=== PATIENT | male | born 1995 | race Caucasian/White ===

== ENCOUNTER 2018-06-27 11:39 | Inpatient (IN) | payer MEDICAID ==
[~2018-06-27] VITALS: Ht 177.8 cm; Wt 79.4 kg
[2018-06-27 11:46] VITALS: BP 137/53
--- NOTE | 2018-06-27 11:53 | NUR ---
PT TO ER BED 1
--- NOTE | 2018-06-27 12:04 | NUR ---
BIB SELF WITH MOTHER C/O SHARP/ACHY EPIGASTRIC PAIN AT 10/10 THAT RADIATES TO BILATERAL SIDES X3 DAYS. PT WAS IN [place] FROM 06/19 TO 06/26. PT WAS GIVEN PAIN MEDICATION SHOT, KETORALAC AND AN ORAL PRESCRIPTION OF KETORALAC AT [place] [facility]. PT REPORTS N/V AND FEVER, CURRENTLY A FEBRILE. DENIES DIARRHEA. HR EVEN AND REGULAR; PATIENT POSITIONED FOR COMFORT; HOB ELEVATED; BEDRAILS UP X2; BED DOWN. ER MADE AWARE OF PT STATUS. Addendum: 06/27/18 at 1629 by [facility]: RIOPAN,LONZOPRASOL,KETEROLACO,RANITINA X YESTERDAY.
--- NOTE | 2018-06-27 12:04 | NUR ---
Note undone in EDM - 06/27/18 at 1226 by MED BIB SELF WITH MOTHER C/O SHARP/ACHY EPIGASTRIC PAIN AT 01/27 THAT RADIATES TO BILATERAL SIDES X3 DAYS. PT WAS IN [place] FROM 06/19 TO 06/26. PT REPORTS N/V AND FEVER, CURRENTLY A FEBRILE. DENIES DIARRHEA. HR EVEN AND REGULAR; PATIENT POSITIONED FOR COMFORT; HOB ELEVATED; BEDRAILS UP X2; BED DOWN. ER MADE AWARE OF PT STATUS.
[2018-06-27] MEDS ORDERED: NACL 0.9% 1,000 ML IV ONE (13:14)
[2018-06-27] MEDS ORDERED: FAMOTIDINE 20 MG/2 ML VIAL IVP ONE (13:15)
[2018-06-27] MEDS ORDERED: METOCLOPRAMIDE 10 MG/2 ML INJ VIAL IVP ONE (13:15)
[2018-06-27] MEDS ORDERED: LACTATED RINGERS 1,000 ML IV ONE (13:15)
[2018-06-27] MEDS ORDERED: PROMETHAZINE 25 MG/ML VIAL IM ONE (13:15)
[2018-06-27] MEDS ORDERED: ONDANSETRON 4 MG/2 ML VIAL IVP ONE (13:15)
[2018-06-27] MEDS ORDERED: MORPHINE SULFATE 4 MG/ML SYR IVP ONE (13:15)
[2018-06-27 14:42] LABS: HEMATOCRIT 50.5 % (36-52); HEMOGLOBIN 16.6 g/dL (12.0-18.0); MEAN CORPUSCULAR HEMOGLOBIN 30 pg (27-31); MEAN CORPUSCULAR HGB CONC 33 g/dL (33-37); MEAN CORPUSCULAR VOLUME 90.8 fL (80-94); PLATELET COUNT (AUTO) 115 K/uL (140-450); RED BLOOD CELL COUNT(AUTO) 5.56 MIL/uL (4.20-6.10); RED CELL DISTRIBUTION WIDTH 12.5 % (11.6-13.7); WHITE BLOOD COUNT (AUTO) 24.1 K/uL (4.8-10.8)
[2018-06-27 15:05] LABS: ANION GAP 16.7 (8-16); CARBON DIOXIDE 23.7 mmol/L (21-32); CHLORIDE 99 mmol/L (98-107); CREATININE 1.6 mg/dL (0.7-1.3); GFR ARICAN-AMERICAN 68 mL/min (>90); GLUCOSE 131 mg/dL (74-106); POTASSIUM 4.4 mmol/L (3.5-5.1); SODIUM SERUM 135 mmol/L (136-145); UREA NITROGEN, BLOOD 23 mg/dL (7-18)
[2018-06-27 15:10] LABS: ALBUMIN 3.5 g/dL (3.4-5.0); AMYLASE 604 U/L (25-115); ASPARTATE AMINOTRANSFERASE 74 U/L (15-37); LIPASE 4032 U/L (73-393); TOTAL BILIRUBIN 2.2 mg/dL (0.0-1.0)
[2018-06-27 15:38] LABS: BILIRUBIN,URINE 1+ (NEGATIVE); BLOOD, URINE 3+ (NEGATIVE); COLOR,URINE YELLOW (YELLOW); LEUKOCYTE ESTERASE ,URINE NEGATIVE (NEGATIVE); NITRITE, URINE NEGATIVE (NEGATIVE); UGLUCOSE NEGATIVE (NEGATIVE)
[2018-06-27] MEDS ORDERED: LEVOFLOXACIN 750 MG/D5W PREMIX 150 ML IV ONE (15:40)
[2018-06-27] MEDS ORDERED: GLYCOPYRROLATE 0.2 MG/ML VIAL IV ONE (15:40)
[2018-06-27 15:43] LABS: APPEARANCE,URINE HAZY (CLEAR)
[2018-06-27 15:44] LABS: BARBITURATE, URINE NEG. ng/ml (NEG <=200); BENZODIAZEPINE, URINE NEG. ng/mL (NEG <=200); CANNABINOID, URINE NEG. ng/mL (NEG <=50); COCAINE, URINE NEG. ng/mL (NEG <=300); OPIATE, URINE POS. ng/mL (NEG <=2000); PHENCYCLIDINE SCREEN,URINE NEG. ng/mL (NEG <=25)
[2018-06-27] MEDS ORDERED: NACL 0.9% 2,000 ML IV SCH (15:50)
[2018-06-27 15:55] LABS: RBC,URINE 11-20 (MOD) /HPF (0-5); WBC,URINE 0-5 /HPF (0-5)
[2018-06-27 16:07] LABS: LYMPHOCYTES % (MANUAL) 3 % (20-46); MONOCYTES % (MANUAL) 10 % (5-12)
[2018-06-27] MEDS ORDERED: ONDANSETRON 4 MG/2 ML VIAL IM/IVP PRN (16:15)
[2018-06-27] MEDS ORDERED: DOCUSATE SODIUM 100 MG GELCAP PO PRN (16:15)
[2018-06-27 16:40] LABS: PROTHROMBIN TIME 10.5 secs (10.8-13.4)
[2018-06-27 16:59] LABS: CHOL/HDL RATIO 2.2 (1-4.5); MAGNESIUM 2.3 mg/dL (1.8-2.4); PHOSPHORUS 3.3 mg/dL (2.5-4.9); THYROID STIMULATING HORMONE 1.13 uIU/mL (0.34-3.74)
--- NOTE | 2018-06-27 17:06 | NUR ---
Patient will be admitted to care of Dr. Villaseñor. Admited to TELE. Will go to room 125 B. Belongings list completed. Report to BIANKA Campos.
[2018-06-27 17:15] VITALS: BP 140/100
--- NOTE | 2018-06-27 17:15 | NUR ---
PT TRANSFERRED TO [facility] UNIT FROM ER VIA GURNEY ESCORTED BY CROTCH BREAKER. REPORT GIVEN AT BEDSIDE FOR CONTINUITY OF CARE, PT IN STABLE CONDITION. HE IS AOX4 GEORGIAN AND JAPANESE SPEAKING. PT SKIN IN TACT. LUNGS SOUNDS CLEAR BUT DIMINISHED ON LEFT SIDE. PT IS BREATHING EVEN AND UNLABORED ON ROM AIR. BOWEL SOUNDS NOTED ALL 4 QUADS, HOWEVER PT SAID THAT HE HAS HAD A LACK OF APPETITE FOR 3 DAYS AND LAST BM WAS 3 DAYS AGO ON THE 7TH. PT SAID THAT HE WAS IN [place] LAST WEEK, AND DRANK HEAVILY. PT SAID HIS SYMPTOMS PAIN , NAUSEA AND VOMITING STARTED 3 DAYS AGO. PT STILL COMPLAINING OF 10/10 PAIN. WILL SPEAK TO RESIDENT MD MANNING TO OBTAIN ORDERS FOR PAIN.
--- NOTE | 2018-06-27 17:30 | NUR ---
PT IN LOW BED SIDE RAILS UP X2 V/S FOLLOWS T 97.6 P 138 R 20 B/P 140/100 02 99% ON ROOM AIR. PT STILL COMPLAINING OF PAIN AND FEELING ANXIOUS.
--- NOTE | 2018-06-27 17:45 | NUR ---
NEW ORDERS NOTED.FOR CT OF ABD/PELVIS WITH CONTRAST. FRUIT DISTRIBUTOR CALLED AND RELAYED MESSAGE TO HAVE PT DRINK WATER BEFORE AND AFTER PROCEDURE BECAUSE CONTRAST DYE IS TAXING FOR THE KIDNEYS.
[2018-06-27] MEDS: NACL 0.9% 1,000 ML IV SCH ×2 (17:50→22:50)
[2018-06-27] MEDS ORDERED: PANTOPRAZOLE 40 MG INJ VIAL IVP SCH (18:00)
[2018-06-27] MEDS: MORPHINE SULFATE 2 MG/ML SYR IVP PRN ×2 (18:05→22:31)
[2018-06-27] MEDS: LORazepam 2 MG/ML VIAL IM/IVP PRN (18:34)
--- NOTE | 2018-06-27 18:40 | NUR ---
PT GIVEN IVP MORPHINE 2MG AND .5MG OF ATIVAN FOR PAIN AN10/10 AND C/O OF ANXIETY. CONSENT SIGNED FOR CT WITH IV CONTRAST.
[2018-06-27] MEDS ORDERED: cefTRIAXone 1,000 MG VIAL ONE (20:11)
--- NOTE | 2018-06-27 20:14 | NUR ---
US OF CHEST, LEFT SIDE DONE AT BEDSIDE.
--- NOTE | 2018-06-27 20:30 | NUR ---
RETAKE OF PT V/S T 98.4 P 140 R 20 B/P 139/87 02 96%. PT HEART RATE ELEVATED, HOWEVER HE HAD JUST AMBULATED TO TOILET AND BACK.
--- NOTE | 2018-06-27 20:37 | NUR ---
PT BROUGHT DOWN TO RADIOLOGY VIA W/C FOR CT WITH CONTRAST.
[2018-06-27] MEDS: metroNIDAZOLE 500 MG/NS PREMIX 100 ML IV SCH (21:00)
--- NOTE | 2018-06-27 22:30 | NUR ---
PT LYING QUIETLY IN BED BUT HAS C/O OF 8/10 WHEN HE MOVES. PT GIVEN PRN IVP MORPHINE. DR. AL AWARE OF ELEVATED HR. WILL MONITOR FOR PAIN RELIEF AND TACHYCARDIA.
--- NOTE | 2018-06-27 23:55 | NUR ---
PT AMBULATED TO TOILET AND BACK. V/S FOLLOWS T 98.4 P 138 R 20 B/P 134/85 02 96%. PT SAID THAT HE IS IN PAIN WHEN HE IS MOVING AROUND. WILL RECHECK HR AFTER PT HAS SETTLED IN TO BED.
--- NOTE | 2018-06-28 00:20 | NUR ---
HEART RATE FLUCTUATING [id number]. IN FORMED DR. AL. HE SAID HE WILL SEE PT AND MAY CHANGE THE FLUID RATE FOR PT. WILL MONITOR FOR ANY NEW ORDERS.
--- NOTE | 2018-06-28 00:32 | NUR ---
SPOKE WITH DR. AL WHO EVALUATED PT. NEW ORDER FOR FLUID INCREASE TO 250MLS/HR OF N/S.
[2018-06-28] MEDS: NACL 0.9% 1,000 ML IV SCH ×2 (03:09→07:38)
[2018-06-28] MEDS: MORPHINE SULFATE 2 MG/ML SYR IVP PRN ×4 (03:30→20:37)
--- NOTE | 2018-06-28 03:35 | NUR ---
PT C/O OF OF SEVERE PAIN IN ABDOMEN 12/28 GIVEN IVP/PRN MORPHINE WILL MONITOR FOR PAIN RELIEF. V/S FOLLOWS T 98.2 P 127 R 20 B/P 138/93 02 96% ON ROOM AIR.
[2018-06-28 04:00] VITALS: BP 138/93
[2018-06-28] MEDS: metroNIDAZOLE 500 MG/NS PREMIX 100 ML IV SCH ×3 (05:00→20:39)
--- NOTE | 2018-06-28 05:02 | NUR ---
EKG WAS DONE AT BEDSIDE. MAC HUNG ORDERED.
[2018-06-28] MEDS: PANTOPRAZOLE 40 MG INJ VIAL IVP SCH (06:29)
--- NOTE | 2018-06-28 07:25 | NUR ---
GAVE REPORT TO BASHIR RN DAYSHIFT NURSE AT BEDSIDE FOR CONTINUITY OF CARE, PT IN STABLE CONDITION.
--- NOTE | 2018-06-28 07:30 | NUR ---
BEDSIDE REPORT RECEIVED FROM NIGHT NURSE. PT ASLEEP, EASILY AROUSABLE TO VERBAL STIMULI, NO S/S OF ACUTE DISTRESS NOTED AT THIS TIME, CALL LIGHT AND PERSONAL ITEMS WITHIN REACH, SAFETY MEASURES IN PLACE, WILL CONTINUE TO MONITOR.
[2018-06-28 08:00] VITALS: BP 129/89
[2018-06-28 08:13] LABS: BASOPHILS % (AUTO) 0.1 % (0.0-2.0); HEMATOCRIT 41.4 % (36-52); HEMOGLOBIN 13.5 g/dL (12.0-18.0); LYMPHOCYTES # (AUTO) 0.6 K/uL (2.0-11.5); LYMPHOCYTES % (AUTO) 4.3 % (20.5-51.1); MEAN CORPUSCULAR HEMOGLOBIN 30 pg (27-31); MEAN CORPUSCULAR HGB CONC 33 g/dL (33-37); MEAN CORPUSCULAR VOLUME 92.4 fL (80-94); MONOCYTES # (AUTO) 0.9 K/uL (0.8-1.0); MONOCYTES % (AUTO) 6.7 % (1.7-9.3); NEUTROPHILS # (AUTO) 11.9 K/uL (1.8-7.7); NEUTROPHILS % (AUTO) 88.9 % (42.2-75.2); PLATELET COUNT (AUTO) 94 K/uL (140-450); RED BLOOD CELL COUNT(AUTO) 4.49 MIL/uL (4.20-6.10); RED CELL DISTRIBUTION WIDTH 12.5 % (11.6-13.7); WHITE BLOOD COUNT (AUTO) 13.3 K/uL (4.8-10.8)
[2018-06-28] MEDS: LACTOBACILLUS RHAMNOSUS GG 1 EACH CAP PO SCH (08:13)
[2018-06-28 08:14] LABS: T4 (THYROXINE) 5.8 ug/dL (4.5-12.0)
[2018-06-28 08:22] LABS: ANION GAP 11.7 (8-16); CARBON DIOXIDE 25.2 mmol/L (21-32); CREATININE 1.4 mg/dL (0.7-1.3); MAGNESIUM 2.5 mg/dL (1.8-2.4); PHOSPHORUS 3.4 mg/dL (2.5-4.9); POTASSIUM 3.9 mmol/L (3.5-5.1)
[2018-06-28 08:25] LABS: AMYLASE 311 U/L (25-115); LIPASE 1987 U/L (73-393)
--- NOTE | 2018-06-28 08:42 | NUR ---
PATIENT HAS BEEN SCREENED AND CATEGORIZED HIGH NUTRITION RISK. PATIENT WILL BE SEEN WITHIN 1-2 DAYS OF ADMISSION. 06/28/18-06/29/[address]
[2018-06-28] MEDS ORDERED: PANTOPRAZOLE 40 MG TABEC PO SCH (09:00)
--- NOTE | 2018-06-28 10:30 | NUR ---
PT ASLEEP AT THIS TIME, VISITORS AT BEDSIDE. NO S/S OF ACUTE DISTRESS NOTED AT THIS TIME, CALL LIGHT AND PERSONAL ITEMS WITHIN REACH, SAFETY MEASURES IN PLACE. WILL CONTINUE TO MONITOR.
[2018-06-28 12:25] VITALS: BP 132/84
--- NOTE | 2018-06-28 13:30 | NUR ---
PT AWAKE A/O ABLE TO COMMUNICATE NEEDS, VISITORS AT BEDSIDE. TOLERATING ICE CHIPS WELL, DENIES NV, PAIN CURRENTLY MANAGED W MEDICATION. NO S/S OF ACUTE DISTRESS NOTED AT THIS TIME, CALL LIGHT AND PERSONAL ITEMS WITHIN REACH, SAFETY MEASURES IN PLACE. WILL CONTINUE TO MONITOR.
[2018-06-28] MEDS: LACTATED RINGERS 1,000 ML IV SCH (14:30)
[2018-06-28] MEDS ORDERED: HYDROmorphone 2 MG TAB PO PRN (14:30)
--- NOTE | 2018-06-28 15:30 | NUR ---
06/28/18 RD INITIAL ASSESSMENT COMPLETED PLEASE REFER TO NUTRITION ASSESSMENT UNDER CARE ACTIVITY FOR ESTIMATED NUTRITIONAL NEEDS. 1. CONTINUE CLEAR DIET TOLERATED 2. RECOMMEND ENSURE CLEAR BID 3. RECOMMEND GRADUALLY ADVANCING DIET TO LOW FAT 4. RD PROVIDED NUTRITION EDUCATION ON PANCREATITIS 5. RD TO FOLLOW-UP 3-5 DAYS, MODERATE RISK TAWANA PINA RD
[2018-06-28 16:00] VITALS: BP 131/85
--- NOTE | 2018-06-28 16:30 | NUR ---
PT AWAKE A/O ABLE TO COMMUNICATE NEEDS, VISITORS AT BEDSIDE. TOLERATING CLEAR LIQUID DIET WELL, DENIES NV, PAIN CURRENTLY MANAGED W MEDICATION. NO S/S OF ACUTE DISTRESS NOTED AT THIS TIME, CALL LIGHT AND PERSONAL ITEMS WITHIN REACH, SAFETY MEASURES IN PLACE. WILL CONTINUE TO MONITOR
--- NOTE | 2018-06-28 19:28 | NUR ---
PT SLEEP, EASILY AROUSABLE TO VERBAL STIMULI TO A/O AND ABLE TO COMMUNICATE NEEDS, VISITORS AT BEDSIDE. PT TOLERATING CLEAR LIQUID DIET WELL, STARTED ON GI SOFT DIET ORDERED. DENIES N/V. PAIN CURRENTLY MANAGED W MEDICATION. NO S/S OF ACUTE DISTRESS NOTED AT THIS TIME, CALL LIGHT AND PERSONAL ITEMS WITHIN REACH, SAFETY MEASURES IN PLACE. REPORT ENDORSED TO ONCOMING NURSE BYRON.
--- NOTE | 2018-06-28 19:30 | NUR ---
RECEIVED PT FROM [facility] NURSE PT IS AAOX4 RESTING ON BED ON TELEMETRY ST IV ON LEFT AC INFUSING WELL DENIES ANY PAIN AT THIS TIME, RELATIVES AT BED SIDE INITIAL ASSESSMENT DONE.
[2018-06-28 20:00] VITALS: BP 132/89
--- NOTE | 2018-06-28 21:15 | NUR ---
AFTER PAIN MEDIC GIVEN PT IS SLEEPING BUT PT ON TELEMETRY DR SERVANDO ESTRADA IS AWARE
[2018-06-29] VITALS (10 sets, daily range): BP systolic 135–155; BP diastolic 73–99
--- NOTE | 2018-06-29 | NUR ---
PT HAS BEEN MOITORING CLOSE ON TELEMETRY ST DR AL AWARE VOIDING WELL IV ON LEFT AC INFUSING WELL
[2018-06-29] MEDS: MORPHINE SULFATE 2 MG/ML SYR IVP PRN ×2 (01:27→04:23)
[2018-06-29] MEDS: LACTATED RINGERS 1,000 ML IV SCH ×4 (02:20→17:41)
--- NOTE | 2018-06-29 02:29 | NUR ---
AFTER PAIN MEDIC GIVENKPT IS SLEEPING WELL , ST ON TELEMETRY
--- NOTE | 2018-06-29 04:00 | NUR ---
SPONGE BATH GIVEN LINEN CHANGED VOIDING WELL IV ON LEFT AC INFUSING WELL ON TELEMETRY ST
[2018-06-29] MEDS: metroNIDAZOLE 500 MG/NS PREMIX 100 ML IV SCH ×2 (04:24→20:10)
[2018-06-29] MEDS: PANTOPRAZOLE 40 MG INJ VIAL IVP SCH (06:01)
[2018-06-29 06:30] LABS: ANION GAP 12.8 (8-16); CARBON DIOXIDE 23.7 mmol/L (21-32); CREATININE 1.1 mg/dL (0.7-1.3); POTASSIUM 3.5 mmol/L (3.5-5.1)
[2018-06-29 06:43] LABS: BASOPHILS % (AUTO) 0.1 % (0.0-2.0); EOSINOPHILS % (AUTO) 0.1 % (0.0-4.0); HEMATOCRIT 34.6 % (36-52); HEMOGLOBIN 11.4 g/dL (12.0-18.0); LYMPHOCYTES # (AUTO) 0.7 K/uL (2.0-11.5); LYMPHOCYTES % (AUTO) 5.9 % (20.5-51.1); MEAN CORPUSCULAR HEMOGLOBIN 30 pg (27-31); MEAN CORPUSCULAR HGB CONC 33 g/dL (33-37); MEAN CORPUSCULAR VOLUME 91.4 fL (80-94); MONOCYTES # (AUTO) 1.2 K/uL (0.8-1.0); MONOCYTES % (AUTO) 9.9 % (1.7-9.3); PLATELET COUNT (AUTO) 108 K/uL (140-450); RED BLOOD CELL COUNT(AUTO) 3.78 MIL/uL (4.20-6.10); RED CELL DISTRIBUTION WIDTH 12.6 % (11.6-13.7); WHITE BLOOD COUNT (AUTO) 11.9 K/uL (4.8-10.8)
[2018-06-29 06:46] LABS: MAGNESIUM 2.2 mg/dL (1.8-2.4); PHOSPHORUS 3.1 mg/dL (2.5-4.9)
[2018-06-29] MEDS ORDERED: MORPHINE SULFATE 4 MG/ML SYR IVP ONE (06:55)
[2018-06-29] MEDS ORDERED: HYDROmorphone 1 MG/ML AMP IVP PRN (06:55)
--- NOTE | 2018-06-29 07:04 | NUR ---
PT RESTING ON BED ON TELMETRY ST PT WILL BE ENDORSED ;TO DAY SHIFT NURSE FOR CONTINUITY OF CARE
--- NOTE | 2018-06-29 07:20 | NUR ---
REPORT RECIVED FROM TOP STEEP TENDER, PT AWAKE ALERT, C/O SEVER ABD PAIN, RESP EVEN UNLABORED ON RA, SKIN WARM DRY COLOR WNL, POC REVIEWED, PT REQUESTS MD ABBY AWARE PER REPORT, ALL SAFETY MEASURES IN PLACE, WILL MEDICATE SOON POSSIBLE.
[2018-06-29] MEDS ORDERED: LORazepam 2 MG/ML VIAL IM/IVP SCH ×2 (07:34→12:00)
[2018-06-29] MEDS: LACTOBACILLUS RHAMNOSUS GG 1 EACH CAP PO SCH (08:51)
--- NOTE | 2018-06-29 09:00 | NUR ---
PT SLEEPING QUIETLY IN NAD, FAMILY AT BEDSIDE, WILL CONTINUE TO MONITOR.
--- NOTE | 2018-06-29 10:05 | NUR ---
PT RESTING QUIETLY, STATES PAIN IS MUCH BETTER, PT CONTINUES TO BE TACHYCARDIC IN 130'S, DR MANNING NOTIFIED OF CONTINUING TACHYCARDIA, AND ABDOMINAL DISTENTION.
[2018-06-29] MEDS: HYDROcodone/APAP 7.5/325 MG 1 TAB PO PRN (11:20)
[2018-06-29] MEDS ORDERED: LORazepam 2 MG/ML VIAL IM/IVP PRN (11:30)
--- NOTE | 2018-06-29 12:00 | NUR ---
PT SLEEPING QUIETLY STATES PAIN IS SUBSIDED BUT HR 130-140 ON TELE, DR MANNING MADE AWARE.
[2018-06-29] MEDS: SENNA 8.6 MG TAB PO SCH ×2 (12:04→17:34)
[2018-06-29] MEDS: traMADol 50 MG TAB PO SCH ×3 (12:04→18:03)
[2018-06-29] MEDS: AMYLASE/LIPASE/PROTEASE 1 CAPDR PO SCH ×2 (12:05→17:34)
[2018-06-29] MEDS ORDERED: chlordiazePOXIDE 25 MG CAP PO SCH (13:00)
--- NOTE | 2018-06-29 13:30 | NUR ---
PT STILL WITH INCREASED HR 140-150 ON MONITOR, BP 155/98, RESP SLIGHTLY TACHYPNEC 24, O2 SAT 88 ON ROOM AIR, PLACED ON 3L NC O2, TEMP 99.6 ORRALY, PT SLEEPY, AROUSES EASILY SPEAKS CLEARLY BUT FALLS BACK TO SLEEP IMMEDIATELY, STATES PAIN IS CONTROLLED AT THIS TIME, DR DAMON MADE AWARE OF CURRENT VITALS.
[2018-06-29 13:31] LABS: ALBUMIN 2.4 g/dL (3.4-5.0); TOTAL BILIRUBIN 1.5 mg/dL (0.0-1.0)
--- NOTE | 2018-06-29 13:55 | NUR ---
DR MANNING AT BEDSIDE FOR EVAL .
--- NOTE | 2018-06-29 14:10 | NUR ---
ANOTHER DOSE OF ATIVAN GIVEN FOR C/O ANXIOUSNESS AND INCREASED HR, OK TO GIVE A DOSE NOW PER DR MANNING.
[2018-06-29] MEDS: LORazepam 2 MG/ML VIAL IM/IVP PRN (14:13)
--- NOTE | 2018-06-29 14:25 | NUR ---
PT TAKEN TO ICU ON CAGE MAKER WITH RN.
--- NOTE | 2018-06-29 14:35 | NUR ---
RECEIVED PATIENT FROM [facility] RN, MARY KAY, FOR CONTINUITY OF CARE. PATIENT IS LETHARGIC, AAOX4. SKIN IS WARM AND DRY AND INTACT. PERIPHERAL IV SITE TO LEFT AC, ASYMPTOMATIC AND PATENT. ON NASAL CANNULA AT 2 LPM, BREATHING IS EVEN AND UNLABORED. ST ON MONITOR, DENIES ANY PAIN AT THIS TIME. NO SIGNS OF DISTRESS AT THIS TIME. CALL LIGHT WITHIN REACH. WILL CONTINUE TO MONITOR Addendum: 06/29/18 at 1500 by Dylan Mendoza RN ADMITTED TO ICU
--- NOTE | 2018-06-29 15:12 | NUR ---
PATIENT IS FEBRILE, TEMP IS 101, ADMINISTERED TYLENOL PRN. PATIENT TOLERATED WELL
--- NOTE | 2018-06-29 15:15 | NUR ---
DR. LEMUS AND DR. MANNING AT BEDSIDE, WILL CONTINUE TO MONITOR.
[2018-06-29] MEDS ORDERED: cloNIDine 0.1 MG TAB PO SCH (15:25)
--- NOTE | 2018-06-29 15:38 | NUR ---
PT UNABLE TO PERFORM IS AT THIS TIME
[2018-06-29] MEDS: ACETAMINOPHEN 325 MG TAB PO PRN (17:41)
--- NOTE | 2018-06-29 17:54 | NUR ---
PATIENT FAMILY AT BEDSIDE, NO SIGNS OF DISTRESS NOTED. WILL CONTINUE TO MONITOR
--- NOTE | 2018-06-29 19:25 | NUR ---
RECEIVED REPORT FROM DAY SHIFT NO ACUTE DISTRESS NOTED.
--- NOTE | 2018-06-29 19:45 | NUR ---
PT AAOX3, FOLLOWING COMMANDS, MOVING EXTREMITIES IN BED. ABLE TO COMMUNICATE NEEDS AND WANTS. PT VERBALIZED UNDERSTANDING ABOUT NPO STATUS @ THIS TIME. LUNGS CLEAR EVEN AND UNLABORED. S1 S2 HEARD, NO EDEMA NOTED. ABD SOFT NON DISTENDED. ACTIVE BOWEL SOUNDS X4. PT VOIDING IN URINAL, DARK TEA COLORED. SKIN WARM DRY INTACT. PERIPHERAL IVS TO L FOREARM NOTED. WILL CONTINUE TO OBSERVE.
[2018-06-29] MEDS: HYDROmorphone 1 MG/ML AMP IVP PRN (19:59)
[2018-06-29] MEDS: cloNIDine 0.1 MG TAB PO SCH (20:07)
--- NOTE | 2018-06-29 23:00 | NUR ---
PT HAS EYES CLOSED; AROUSABLE; FAMILY @ BEDSIDE. HR 120S BP 135/68 SPO2 99%. PT DENIES PAIN @ THIS TIME. WILL CONTINUE TO OBSERVE
[2018-06-30] VITALS (12 sets, daily range): BP systolic 120–156; BP diastolic 74–97
[2018-06-30] MEDS: LORazepam 2 MG/ML VIAL IM/IVP PRN ×2 (01:42→10:53)
--- NOTE | 2018-06-30 02:25 | NUR ---
PT STATES HE FEELS WARM, CHECKED TEMPERATURE, 101.3, TYLENOL GIVEN WILL CONTINUE TO OBSERVE
[2018-06-30] MEDS: LACTATED RINGERS 1,000 ML IV SCH ×2 (02:45→11:22)
[2018-06-30] MEDS: ACETAMINOPHEN 325 MG TAB PO PRN (02:45)
[2018-06-30] MEDS: HYDROmorphone 1 MG/ML AMP IVP PRN ×3 (03:25→20:33)
--- NOTE | 2018-06-30 04:00 | NUR ---
PT TEMP NOW DOWN TO 97.4, HR 120S BP 130/82. WILL CONTINUE TO OBSERVE
[2018-06-30] MEDS: metroNIDAZOLE 500 MG/NS PREMIX 100 ML IV SCH (05:18)
[2018-06-30] MEDS: cloNIDine 0.1 MG TAB PO SCH ×3 (05:18→20:37)
[2018-06-30] MEDS: PANTOPRAZOLE 40 MG INJ VIAL IVP SCH (05:19)
[2018-06-30 06:08] LABS: ANION GAP 12.7 (8-16); CARBON DIOXIDE 23.7 mmol/L (21-32); POTASSIUM 3.4 mmol/L (3.5-5.1)
[2018-06-30 06:20] LABS: PHOSPHORUS 3.9 mg/dL (2.5-4.9)
[2018-06-30 06:36] LABS: BASOPHILS % (AUTO) 0.1 % (0.0-2.0); EOSINOPHILS % (AUTO) 0.3 % (0.0-4.0); HEMATOCRIT 34.7 % (36-52); HEMOGLOBIN 11.3 g/dL (12.0-18.0); LYMPHOCYTES # (AUTO) 0.6 K/uL (2.0-11.5); LYMPHOCYTES % (AUTO) 4.6 % (20.5-51.1); MEAN CORPUSCULAR HEMOGLOBIN 30 pg (27-31); MEAN CORPUSCULAR HGB CONC 33 g/dL (33-37); MEAN CORPUSCULAR VOLUME 91.9 fL (80-94); MONOCYTES # (AUTO) 1.7 K/uL (0.8-1.0); NEUTROPHILS # (AUTO) 10.6 K/uL (1.8-7.7); PLATELET COUNT (AUTO) 133 K/uL (140-450); RED BLOOD CELL COUNT(AUTO) 3.78 MIL/uL (4.20-6.10); RED CELL DISTRIBUTION WIDTH 12.5 % (11.6-13.7)
--- NOTE | 2018-06-30 07:02 | NUR ---
RECEIVED BEDSIDE REPORT FROM VETERINARY PRACTITIONER RN, VIKTORIA, FOR CONTINUITY OF CARE. PATIENT IS AAOX4, ABLE TO FOLLOW COMMANDS AND MAKE NEEDS KNOWN. PATIENT SKIN IS INTACT, HE HAS PERIPHERAL IV SITE TO LEFT AC, ASYMPTOMATIC AND PATENT. SKIN WARM AND DRY, HE IS AFEBRILE. PATIENT IS ON NASAL CANNULA AT 3LPM, BREATHING EVEN AND UNLABORED. HE IS TACHYCARDIC, DENIES PAIN AT THIS TIME. SAFETY PRECAUTIONS ASSESSED AND ENFORCED. CALL LIGHT WITHIN REACH. WILL CONTINUE TO MONITOR.
--- NOTE | 2018-06-30 08:04 | NUR ---
DR. LEMUS IN TO SEE AND EXAMINE PATIENT, WILL FOLLOW UP ON ANY ORDERS.
--- NOTE | 2018-06-30 08:16 | NUR ---
PATIENT COMPLAINING OF LOWER BACK PAIN, REFUSED PAIN MEDICATION AT THIS TIME, STATES HE WANTS TO GET UP AND WALK AROUND. ASSISTED PATIENT GETTING UP TO SIT IN CHAIR AT BEDSIDE. PATIENT TOLERATED WELL, NO DISTRESS AT THIS TIME
--- NOTE | 2018-06-30 08:20 | NUR ---
DR. LOPEZ AND RESIDENT PHYSICIANS AT BEDSIDE TO ROUND ON PATIENT. WILL FOLLOW UP ON ANY ORDERS.
[2018-06-30] MEDS: AMYLASE/LIPASE/PROTEASE 1 CAPDR PO SCH ×3 (08:30→17:20)
[2018-06-30] MEDS: LACTOBACILLUS RHAMNOSUS GG 1 EACH CAP PO SCH (08:30)
[2018-06-30] MEDS: SENNA 8.6 MG TAB PO SCH ×3 (08:31→17:20)
[2018-06-30] MEDS: FOLIC ACID 1 MG TAB PO SCH (08:31)
[2018-06-30] MEDS: MULTIVITAMIN 1 TAB PO SCH (08:31)
[2018-06-30] MEDS: THIAMINE 100 MG TAB PO SCH (08:31)
[2018-06-30] MEDS: traMADol 50 MG TAB PO SCH ×3 (08:31→17:20)
--- NOTE | 2018-06-30 11:13 | NUR ---
DR. MCKNIGHT IN TO SEE AND EXAMINE PATIENT, UPDATED ON PATIENT'S CONDITION. WILL FOLLOW UP ON ANY ORDERS.
--- NOTE | 2018-06-30 11:31 | NUR ---
RECEIVED CALL FROM DR. URIBE, UPDATED HIM ON PATIENT'S CONDITION. STATES TO D/C ROCEPHIN AND FLAGYL AND START PATIENT ON ZOSYN 3.375 IV Q6H.
[2018-06-30] MEDS: PIPER/TAZO 3.375GM/D5W PREMIX 50 ML IV SCH ×2 (12:00→17:20)
[2018-06-30] MEDS ORDERED: POTASSIUM CHLORIDE 10 MEQ TABER PO SCH (12:00)
--- NOTE | 2018-06-30 14:00 | NUR ---
PROVIDED EDUCATION ON PAIN MANAGEMENT AND RESPIRATORY DEPRESSION. PATIENT AND PATIENT'S MOTHER VERBALIZES UNDERSTANDING
--- NOTE | 2018-06-30 15:21 | NUR ---
PATIENT COMPLAINS OF 8/10 PAIN, ADMINISTERED PRN DILAUDID IVP. WILL CONTINUE TO MONITOR
[2018-06-30] MEDS ORDERED: MAGNESIUM CITRATE 300 ML BTL PO SCH (18:45)
[2018-06-30] MEDS ORDERED: FUROSEMIDE 20 MG/2 ML VIAL IVP SCH (18:45)
--- NOTE | 2018-06-30 19:20 | NUR ---
RECEIVED BEDSIDE REPORT FROM MORNING NURSE, PATIENT AAOX 4, NO FEVER, NO ACUTE DISTRESS NOTED. BILATERAL LUNGS SOUND CLEAR, WITH O2 2L/M VIA NC, O2 SAT ABOVE 96% NOTED. ACTIVE BOWEL SOUND FROM ALL 4QUADS. PERIPHERAL LINES TO LEFT AC 20G AND LEFT FOREARM 20G, RUNNING LR 75ML/HR, LINES ARE INTACT AND PATENT. SKIN IS WARM TO TOUCH AND INTACT. HOB ELEVATED, BED IN LOW POSITION, CALL LIGHT WITHIN REACH. WILL CONTINUE TO MONITOR.
--- NOTE | 2018-06-30 19:23 | NUR ---
ENDORSED CONTINUITY OF CARE TO FIRST ASSISTANT RNSHADIA. NO SIGNS OF DISTRESS AT THIS TIME
[2018-06-30] MEDS ORDERED: MAGNESIUM CITRATE 300 ML BTL ONE (21:05)
--- NOTE | 2018-06-30 23:00 | NUR ---
ADMINISTERED CITROMA 300ML, TOLERATED WELL. NO ACUTE DISTRESS NOTED. WILL CONTINUE TO MONITOR.
[2018-07-01] VITALS (10 sets, daily range): BP systolic 122–144; BP diastolic 74–99
[2018-07-01] MEDS: PIPER/TAZO 3.375GM/D5W PREMIX 50 ML IV SCH ×5 (00:03→23:29)
--- NOTE | 2018-07-01 01:00 | NUR ---
PATIENT IN ASLEEP, AROUSABLE TO VOICE. NO ACUTE DISTRESS NOTED. ST ON THE MONITOR. WILL CONTINUE TO MONITOR.
[2018-07-01] MEDS: LACTATED RINGERS 1,000 ML IV SCH ×2 (01:07→06:16)
[2018-07-01] MEDS: HYDROmorphone 1 MG/ML AMP IVP PRN ×4 (02:21→20:48)
--- NOTE | 2018-07-01 04:00 | NUR ---
IN ASLEEP, NO ACUTE DISTRESS NOTED. DENIES PAIN. STILL ST ON THE MONITOR. WILL CONTINUE TO MONITOR.
[2018-07-01] MEDS: cloNIDine 0.1 MG TAB PO SCH ×2 (05:18→12:31)
[2018-07-01] MEDS: PANTOPRAZOLE 40 MG INJ VIAL IVP SCH (06:15)
[2018-07-01 06:41] LABS: HEMOGLOBIN 10.6 g/dL (12.0-18.0); MEAN CORPUSCULAR HEMOGLOBIN 30 pg (27-31); MEAN CORPUSCULAR HGB CONC 33 g/dL (33-37); MEAN CORPUSCULAR VOLUME 90.7 fL (80-94); PLATELET COUNT (AUTO) 152 K/uL (140-450); RED BLOOD CELL COUNT(AUTO) 3.53 MIL/uL (4.20-6.10); RED CELL DISTRIBUTION WIDTH 12.8 % (11.6-13.7); WHITE BLOOD COUNT (AUTO) 16.2 K/uL (4.8-10.8)
[2018-07-01 07:21] LABS: ANION GAP 11.8 (8-16); CARBON DIOXIDE 27.4 mmol/L (21-32); CREATININE 1.1 mg/dL (0.7-1.3); POTASSIUM 3.2 mmol/L (3.5-5.1)
[2018-07-01 07:24] LABS: LYMPHOCYTES % (MANUAL) 4 % (20-46); MONOCYTES % (MANUAL) 11 % (5-12)
[2018-07-01 07:26] LABS: MAGNESIUM 1.7 mg/dL (1.8-2.4); PHOSPHORUS 3.8 mg/dL (2.5-4.9)
--- NOTE | 2018-07-01 07:30 | NUR ---
OBTAINED REPORT FROM CABLE DISPATCHER RN AT BEDSIDE, PT IS AAOX4, ABLE TO FOLLOW COMMANDS AND MAKE NEEDS KNOWN, C/O ABDOMINAL PAIN 12/28, NO S/S OF DISTRESS, CLEAR LUNG SOUNDS ELIGIO. ON O2 AT 2L VIA NC, O2 96%, DENIES CHEST PAIN, ST ON CLINICAL BIOCHEMIST, DISTENDED ABDOMEN NOTED, ACTIVE BOWEL SOUNDS, CONTINENT WITH B&B, SKIN IS WARM AND DRY TO TOUCH, ABLE TO MOVE ALL EXTREMITIES, IV SITE TO LEFT AC, 20GA, PATENT AND SL, IV TO LEFT FOREARM 20GA, RUNNING LR AT 75ML/HR. HOB ELEVATED TO 30 DEGREES, POSITION CHANGED FOR COMFORT, CALL LIGHT WITHIN REACH, SAFETY MEASURES IN PLACE, WILL CONTINUE TO MONITOR.
[2018-07-01] MEDS: AMYLASE/LIPASE/PROTEASE 1 CAPDR PO SCH ×3 (08:29→16:23)
[2018-07-01] MEDS: SENNA 8.6 MG TAB PO SCH ×3 (08:30→20:47)
[2018-07-01] MEDS: LACTOBACILLUS RHAMNOSUS GG 1 EACH CAP PO SCH (08:30)
[2018-07-01] MEDS: traMADol 50 MG TAB PO SCH ×2 (08:30→12:31)
[2018-07-01] MEDS: THIAMINE 100 MG TAB PO SCH (08:30)
[2018-07-01] MEDS: MULTIVITAMIN 1 TAB PO SCH (08:31)
[2018-07-01] MEDS: FOLIC ACID 1 MG TAB PO SCH (08:31)
[2018-07-01] MEDS ORDERED: SIMETHICONE 80 MG TAB.CHEW PO PRN (08:55)
[2018-07-01] MEDS ORDERED: POTASSIUM CHLORIDE 20% 40 MEQ/15 ML UDC GT SCH (09:00)
[2018-07-01] MEDS ORDERED: SIMETHICONE 80 MG TAB.CHEW PO SCH (09:15)
[2018-07-01] MEDS ORDERED: POTASSIUM CHLORIDE 40 MEQ, LIDOCAINE 1% 25 MG in NACL 0.9% 250 ML IV SCH (09:30)
--- NOTE | 2018-07-01 09:30 | NUR ---
SCHEDULED MEDICATION GIVEN, PT TOLERATED WELL.
--- NOTE | 2018-07-01 10:00 | NUR ---
NO S/S OF DISTRESS, VSS, DENIES PAIN, FAMILY MEMBER AT BEDSIDE.
--- NOTE | 2018-07-01 12:00 | NUR ---
NO CHANGE OF CONDITION, ST ON FRONT ATTENDANT, C/O ABDOMINAL PAIN, BUT TOLERABLE, PT'S MOTHER AT BEDSIDE.
[2018-07-01] MEDS ORDERED: FUROSEMIDE 20 MG/2 ML VIAL IVP SCH (14:00)
--- NOTE | 2018-07-01 14:00 | NUR ---
PT IS HAVING SEVERAL TIMES A BOWEL MOVEMENT WITH LOOSE STOOL. AWARE.
--- NOTE | 2018-07-01 15:03 | NUR ---
PT C/O ANXIETY, WILL GIVE ATIVAN ORDERED. FAMILY MEMBERS AT BEDSIDE.
[2018-07-01] MEDS: LORazepam 2 MG/ML VIAL IM/IVP PRN (15:08)
[2018-07-01] MEDS ORDERED: MAG SULF 2000 MG/WATER PREMIX 50 ML IV SCH (16:00)
--- NOTE | 2018-07-01 16:00 | NUR ---
TEMP 102.7F, THIENYL GIVEN. PT ALSO C/O ABDOMINAL PAIN, DILAUDID GIVEN ORDERED.
[2018-07-01] MEDS: POTASSIUM CHLORIDE 20% 40 MEQ/15 ML UDC GT SCH (16:22)
[2018-07-01] MEDS: ACETAMINOPHEN 325 MG TAB PO PRN (16:22)
[2018-07-01 16:34] LABS: ANION GAP 12.3 (8-16); CARBON DIOXIDE 28.2 mmol/L (21-32); CREATININE 1.2 mg/dL (0.7-1.3); POTASSIUM 3.5 mmol/L (3.5-5.1)
--- NOTE | 2018-07-01 17:38 | NUR ---
i.S. NOT DONE HR 120 TO 130
--- NOTE | 2018-07-01 18:40 | NUR ---
TRANSFERRED PT TO TELEMETRY ROOM 105B VIA WHEELCHAIR WITHOUT INCIDENT, ALL BELONGS GOES WITH PT, REPORT GIVEN TO BIANKA MANLEY AT BEDSIDE, PT IS IN STABLE CONDITION AT THIS TIME.
--- NOTE | 2018-07-01 18:49 | NUR ---
ASSUMED CARE FROM ICU NURSE KATHERINE. PT AAOX4. AMBULATORY. NO SOB NOTED. NO C/O PAIN AT THIS TIME. FAMILY AT THE BEDSIDE.
--- NOTE | 2018-07-01 19:30 | NUR ---
PT AWAKE. NO SOB NOTED. NO C/O PAIN AT THIS TIME. MOTHER AT THE BEDSIDE. ENDORSED TO NEXT SHIFT NURSE FOR CONTINUITY OF CARE.
--- NOTE | 2018-07-01 19:35 | NUR ---
RECEIVED PATIENT FROM DAY SHIFT NURSE FOR CONTINUITY OF CARE. PATIENT IS AWAKE, ALERT, AND COOPERATIVE. RESPIRATION EVEN UNLABORED ON ROOM AIR. SKIN IS DRY AND WARM. IV PATENT AND INTACT. FAMILY AT BEDSIDE. PLAN OF CARE WAS DISCUSSED. ALL SAFETY MEASURES ARE IN PLACE. CALL LIGHT WITHIN REACH AND PATIENT VERBALIZES ITS USE. BED IS AT LOW POSITION. WILL CONTINUE TO MONITOR.
--- NOTE | 2018-07-01 20:40 | NUR ---
INITIAL ASSESSMENT DONE. VITALS WERE TAKEN. PATIENT COMPLAINED OF 8/10 ABDOMEN PAIN. PRN PAIN MED GIVEN PER ORDER. ALL DUE MEDS WERE GIVEN AND TOLERATED WELL. CALL LIGHT WITHIN REACH WILL CONTINUE TO MONITOR.
--- NOTE | 2018-07-01 21:20 | NUR ---
REASSESSED PAIN MED. PATIENT ABLE TO VERBALIZES REDUCE PAIN AND STATED PAIN IS 4/10 SOMEHOW EFFECTIVE. WILL CONTINUE TO MONITOR.
[2018-07-01 21:48] LABS: ALBUMIN 2.2 g/dL (3.4-5.0); BILIRUBIN,DIRECT 0.7 mg/dL (0.0-0.3); TOTAL BILIRUBIN 1.1 mg/dL (0.0-1.0)
--- NOTE | 2018-07-01 22:40 | NUR ---
PATIENT LYING IN BED WATCHING TV COMFORTABLY RESPIRATION EVEN UNLABORED ON ROOM AIR. NO DISTRESS NOTED. WILL CONTINUE TO MONITOR.
[2018-07-02] VITALS: BP 126/82
--- NOTE | 2018-07-02 | NUR ---
VITALS WERE TAKEN. PATIENT HR 141. NOTIFIED DR. AL. NO NEW ORDERS JUST CONTINUE TO MONITOR.
--- NOTE | 2018-07-02 01:20 | NUR ---
ASSUMED PATIENT CARE FROM BIANKA WANG.
[2018-07-02] MEDS: HYDROmorphone 1 MG/ML AMP IVP PRN ×3 (02:35→23:42)
[2018-07-02 04:00] VITALS: BP 133/83
--- NOTE | 2018-07-02 04:20 | NUR ---
SEEN PT AWAKE. PT ASKED IF HE HAD BM AGAIN, PT DENIES. VITAL SIGNS CHECKED. PT'S O2SAT ON ROOM AIR IS 87%-89%. PT PLACED ON 3L VIA NC. O2SAT WENT UP TO 93%-94%. PT ENCOURAGED TO USE INCENTIVE SPIROMETER 10X IN AN HR TO HELP WITH HIS BREATHING. PT STATES IT KIND OF HURTS WHEN HE TAKES DEEP BREATHE. INFORMED PT TO DO IT SLOWLY. PT VERBALIZED UNDERSTANDING. WILL CONTINUE TO MONITOR.
[2018-07-02] MEDS: LORazepam 2 MG/ML VIAL IM/IVP PRN (04:41)
[2018-07-02] MEDS: PIPER/TAZO 3.375GM/D5W PREMIX 50 ML IV SCH ×4 (06:14→23:41)
[2018-07-02] MEDS: PANTOPRAZOLE 40 MG INJ VIAL IVP SCH (06:14)
--- NOTE | 2018-07-02 06:15 | NUR ---
SEEN PT SLEEPING COMFORTABLY. IVPB ATB AND PROTONIX IVP GIVEN ORDERED. SAFETY ENSURED. CALL LIGHT W/IN REACH.
[2018-07-02 06:47] LABS: ANION GAP 11.7 (8-16); CARBON DIOXIDE 29.6 mmol/L (21-32); CREATININE 1.1 mg/dL (0.7-1.3); POTASSIUM 3.3 mmol/L (3.5-5.1)
[2018-07-02 07:02] LABS: MAGNESIUM 1.9 mg/dL (1.8-2.4); PHOSPHORUS 3.9 mg/dL (2.5-4.9)
[2018-07-02 07:11] LABS: HEMATOCRIT 34.4 % (36-52); HEMOGLOBIN 11.3 g/dL (12.0-18.0); MEAN CORPUSCULAR HEMOGLOBIN 30 pg (27-31); MEAN CORPUSCULAR HGB CONC 33 g/dL (33-37); MEAN CORPUSCULAR VOLUME 90.8 fL (80-94); PLATELET COUNT (AUTO) 213 K/uL (140-450); RED BLOOD CELL COUNT(AUTO) 3.79 MIL/uL (4.20-6.10); RED CELL DISTRIBUTION WIDTH 12.8 % (11.6-13.7); WHITE BLOOD COUNT (AUTO) 23.3 K/uL (4.8-10.8)
--- NOTE | 2018-07-02 07:11 | NUR ---
WILL ENDORSE CARE TO DAYSHIFT NURSE.
--- NOTE | 2018-07-02 07:13 | NUR ---
RECEIVED BEDSIDE REPORT FROM HEALTH OFFICER NURSE. PATIENT IS AOX4, AND COOPERATIVE. ABLE TO FOLLOW COMMANDS AND MAKE NEEDS KNOWN. RESPIRATION EVEN UNLABORED. PT IS ON 3L/MIN NC. NO SIGNS OF DISTRESS NOTED. SKIN IS WARM AND DRY. IV PATENT AND INTACT, NOT INFUSING AT THIS TIME. PATIENT IS ABLE TO AMBULATE WITH STANDBY ASSISTANCE. PLAN OF CARE WAS DISCUSSED AND PT VERBALIZED UNDERSTANDING. ALL SAFETY MEASURES ARE IN PLACE. INSTRUCTED PT TO USE THE CALL LIGHT FOR ANY ASSISTANCE AND PT AWARE. CALL LIGHT WITHIN REACH. TWO SIDE RAILS ARE UP. BED IS AT LOW POSITION.
[2018-07-02 07:40] LABS: LYMPHOCYTES % (MANUAL) 4 % (20-46)
[2018-07-02 07:41] LABS: MONOCYTES % (MANUAL) 8 % (5-12)
[2018-07-02 08:00] VITALS: BP 134/94
[2018-07-02] MEDS: POTASSIUM CHLORIDE 20% 40 MEQ/15 ML UDC GT SCH (08:34)
[2018-07-02] MEDS: LACTOBACILLUS RHAMNOSUS GG 1 EACH CAP PO SCH (08:35)
[2018-07-02] MEDS: SENNA 8.6 MG TAB PO SCH ×2 (08:35→20:25)
[2018-07-02] MEDS: THIAMINE 100 MG TAB PO SCH (08:35)
[2018-07-02] MEDS: AMYLASE/LIPASE/PROTEASE 1 CAPDR PO SCH ×3 (08:35→16:35)
[2018-07-02] MEDS: FOLIC ACID 1 MG TAB PO SCH (08:36)
[2018-07-02] MEDS: MULTIVITAMIN 1 TAB PO SCH (08:36)
--- NOTE | 2018-07-02 08:46 | NUR ---
DR LEMUS IS AT BEDSIDE TALKING TO THE PATIENT. NO SIGNS OF DISTRESS NOTED.
[2018-07-02] MEDS ORDERED: LACTOBACILLUS RHAMNOSUS GG 1 EACH CAP PO SCH (09:00)
[2018-07-02] MEDS: chlordiazePOXIDE 25 MG CAP PO SCH ×3 (09:29→16:34)
--- NOTE | 2018-07-02 09:44 | NUR ---
PT IS AMBULATING AROUND THE HALLWAY WITH HIS MOM MOMO. DENIES OF PAIN AND DIZZINESS. NO SIGNS OF DISTRESS NOTED.
[2018-07-02] MEDS ORDERED: HYDROmorphone PFS 2 MG/ML SYR IVP PRN (10:20)
--- NOTE | 2018-07-02 10:22 | NUR ---
PT C/O OF PAIN LEVEL 9/10 ON HIS ABDOMINAL REGION. ADMINISTERED PRN PAIN MED.
--- NOTE | 2018-07-02 11:40 | NUR ---
SR MANNING IS TALKING TO THE PATIENT AT BEDSIDE.
--- NOTE | 2018-07-02 11:53 | NUR ---
VISITORS ARE AT BEDSIDE AND TALKING TO PT. NO SIGNS OF DISTRESS NOTED.
[2018-07-02 12:00] VITALS: BP 134/71
[2018-07-02] MEDS ORDERED: POTASSIUM CHLORIDE 10 MEQ TABER PO SCH (12:00)
[2018-07-02] MEDS ORDERED: MORPHINE SULFATE 2 MG/ML SYR IVP PRN (12:35)
[2018-07-02] MEDS ORDERED: FUROSEMIDE 20 MG/2 ML VIAL IVP SCH (13:00)
--- NOTE | 2018-07-02 13:20 | NUR ---
PT IS TALKING TO HIS MOM AT BEDSIDE. NO SIGNS OF DISTRESS NOTED.
[2018-07-02] MEDS: HYDROcodone/APAP 7.5/325 MG 1 TAB PO PRN (14:00)
--- NOTE | 2018-07-02 14:00 | NUR ---
COMPLETED CONTRAST ADMINISTRATION QUESTIONNAIRE AND CONSENT FORM AT BEDSIDE. INFORMATION WAS OBTAINED FROM PATIENT. PATIENT WAS AWARE AND ACKNOWLEDGE ABOUT THE PROCEDURE. STARTED A 20G IV ON PT'S LFA. PATIENT TOLERATED WELL. PATIENT'S MOM WAS AT BEDSIDE.
--- NOTE | 2018-07-02 15:40 | NUR ---
07/02/18 RD FOLLOW UP COMPLETED PLEASE REFER TO NUTRITION ASSESSMENT UNDER CARE ACTIVITY FOR ESTIMATED NUTRITIONAL NEEDS. 1. CONTINUE FULL DIET TOLERATED 2. RECOMMEND ENSURE BID 3. RECOMMEND GRADUALLY ADVANCING DIET TO LOW FAT 4. RD TO FOLLOW-UP 3-5 DAYS, MODERATE RISK TAWANA PINA, RD
[2018-07-02 16:00] VITALS: BP 138/87
--- NOTE | 2018-07-02 16:10 | NUR ---
PATIENT IS RESTING ON BED AND WATCHING TV. PT'S VISITORS ARE AT BEDSIDE. NO SIGNS OF DISTRESS NOTED.
--- NOTE | 2018-07-02 18:05 | NUR ---
PATIENT IS EATING DINNER AT THIS TIME. HIS MOM AND VISITORS ARE AT BEDSIDE. NO SIGNS OF DISTRESS NOTED.
--- NOTE | 2018-07-02 19:15 | NUR ---
ENDORSED PATIENT AT BEDSIDE TO FUNCTIONAL TESTER TYPEWRITERS NURSE FOR CONTINUITY OF CARE. PT IS IN STABLE CONDITION.
--- NOTE | 2018-07-02 19:16 | NUR ---
RECEIVED REPORT FROM DAY SHIFT NURSE ANANDA-RN AT BEDSIDE. PT RESTING IN BED, FAMILY AT BEDSIDE. AOX4, ON ROOM AIR WITH LEFT HAND #20-SL AND RIGHT HAND #20-RUNNING NS @10ML/HR. DISCUSSED PLAN OF CARE AND PT VERBALIZED UNDERSTANDING. PT C/O PAIN 01/27- WILL MEDICATE AFTER VITAL SIGNS. NO S/S OF RESPIRATORY DISTRESS. BED IN LOWEST POSITION, BED BREAKS ON, BOTH SIDE RAILS UP AND FALL PRECAUTIONS IN PLACE. BEDSIDE TABLE AND CALL LIGHT ARE WITHIN REACH. WILL CONTINUE TO MONITOR.
--- NOTE | 2018-07-02 19:37 | NUR ---
VITAL SIGNS TAKEN AND TOLERATED WELL. INCREASED HR NOTED OF 130. DILAUDID GIVEN AND TOLERATED WELL. NO S/S OF RESPIRATORY DISTRESS. WILL CONTINUE TO MONITOR.
[2018-07-02 20:00] VITALS: BP 149/94
--- NOTE | 2018-07-02 21:00 | NUR ---
PT REFUSED SCHEDULED MEDICATION [place] STATING HE HAS BEEN HAVING LOOSE STOOLS TODAY. NO S/S OF RESPIRATORY DISTRESS OR DISCOMFORT NOTED AT THIS TIME. WILL CONTINUE TO MONITOR.
--- NOTE | 2018-07-02 22:00 | NUR ---
PT SLEEPING IN BED. NO S/S OF RESPIRATORY DISTRESS OR DISCOMFORT NOTED AT THIS TIME. WILL CONTINUE TO MONITOR.
--- NOTE | 2018-07-02 23:41 | NUR ---
SCHEDULED MEDICATION GIVEN AND TOLERATED WELL. VITAL SIGNS TAKEN AND TOLERATED WELL- INCREASED HR 134 NOTED. PT C/O PAIN 01/27 AND WAS MEDICATED WITH DILAUDID. PT TOLERATED WELL. NO S/S OF RESPIRATORY DISTRESS OR DISCOMFORT NOTED AT THIS TIME. WILL CONTINUE TO MONITOR.
[2018-07-03] VITALS: BP 137/85
[2018-07-03] MEDS: LORazepam 2 MG/ML VIAL IM/IVP PRN ×4 (01:05→23:02)
--- NOTE | 2018-07-03 01:05 | NUR ---
PT C/O ANXITEY- MEDICATED WITH ATIVAN. PT TOLERATED WELL. NO S/S OF RESPIRATORY DISTRESS OR DISCOMFORT NOTED AT THIS TIME. WILL CONTINUE TO MONITOR.
--- NOTE | 2018-07-03 02:00 | NUR ---
PT SLEEPING IN BED. NO S/S OF RESPIRATORY DISTRESS OR DISCOMFORT NOTED AT THIS TIME. WILL CONTINUE TO MONITOR.
[2018-07-03 04:00] VITALS: BP 127/85
--- NOTE | 2018-07-03 04:00 | NUR ---
VITAL SIGNS TAKEN AND TOLERATED WELL. PT C/O 01/27 PAIN- WILL MEDICATE. NO S/S OF RESPIRATORY DISTRESS OR DISCOMFORT NOTED AT THIS TIME. WILL CONTINUE TO MONITOR.
[2018-07-03] MEDS: HYDROmorphone 1 MG/ML AMP IVP PRN ×4 (04:29→20:20)
--- NOTE | 2018-07-03 04:29 | NUR ---
DILAUDID GIVEN FOR PAIN. PT TOLERATED WELL. NO S/S OF RESPIRATORY DISTRESS OR DISCOMFORT NOTED AT THIS TIME. WILL CONTINUE TO MONITOR.
[2018-07-03] MEDS: PANTOPRAZOLE 40 MG INJ VIAL IVP SCH (06:00)
[2018-07-03] MEDS: PIPER/TAZO 3.375GM/D5W PREMIX 50 ML IV SCH ×4 (06:00→23:22)
--- NOTE | 2018-07-03 06:00 | NUR ---
SCHEDULED MEDICATION ZOSYN AND PROTONIX GIVEN AND TOLERATED WELL. NO S/S OF RESPIRATORY DISTRESS OR DISCOMFORT NOTED AT THIS TIME. WILL CONTINUE TO MONITOR.
--- NOTE | 2018-07-03 06:00 | NUR ---
PT C/O ANXIETY. WILL ADMINISTER ATIVAN. NO S/S OF RESPIRATORY DISTRESS OR DISCOMFORT NOTED AT THIS TIME. WILL CONTINUE TO MONITOR.
--- NOTE | 2018-07-03 06:37 | NUR ---
ATIVAN GIVEN FOR ANXIETY. PT TOLERATED WELL. NO S/S OF RESPIRATORY DISTRESS OR DISCOMFORT NOTED AT THIS TIME. WILL CONTINUE TO MONITOR.
[2018-07-03 07:17] LABS: BASOPHILS % (AUTO) 0.2 % (0.0-2.0); EOSINOPHILS # (AUTO) 0.1 K/uL (0-0.4); EOSINOPHILS % (AUTO) 0.2 % (0.0-4.0); HEMATOCRIT 33.3 % (36-52); HEMOGLOBIN 10.8 g/dL (12.0-18.0); LYMPHOCYTES # (AUTO) 1.2 K/uL (2.0-11.5); MEAN CORPUSCULAR HEMOGLOBIN 29 pg (27-31); MEAN CORPUSCULAR HGB CONC 32 g/dL (33-37); MEAN CORPUSCULAR VOLUME 90.6 fL (80-94); MONOCYTES % (AUTO) 8.8 % (1.7-9.3); NEUTROPHILS % (AUTO) 85.8 % (42.2-75.2); PLATELET COUNT (AUTO) 221 K/uL (140-450); RED BLOOD CELL COUNT(AUTO) 3.67 MIL/uL (4.20-6.10); RED CELL DISTRIBUTION WIDTH 12.7 % (11.6-13.7); WHITE BLOOD COUNT (AUTO) 23.3 K/uL (4.8-10.8)
[2018-07-03 07:23] LABS: ANION GAP 13.4 (8-16); CARBON DIOXIDE 25.9 mmol/L (21-32); CREATININE 0.9 mg/dL (0.7-1.3); POTASSIUM 3.3 mmol/L (3.5-5.1)
[2018-07-03 07:29] LABS: MAGNESIUM 1.8 mg/dL (1.8-2.4); PHOSPHORUS 3.5 mg/dL (2.5-4.9)
--- NOTE | 2018-07-03 07:29 | NUR ---
ENDORSED PT CARE TO DAY SHIFT NURSE ADAM FOR CONTINUITY OF CARE.
--- NOTE | 2018-07-03 07:30 | NUR ---
RECEIVED BEDSIDE REPORT FROM MANAGER COLLEGE NURSE. PATIENT IS AOX4, AND COOPERATIVE. ABLE TO FOLLOW COMMANDS AND MAKE NEEDS KNOWN. RESPIRATION EVEN UNLABORED. PT IS ON RA, AND HE REFUSED TO WEAR HIS NASAL CANULA. STATED THAT IT MAKES HIS NOSES UNCOMFORTABLE. EDUCATED PATIENT ON USING THE NASAL CANULA. ASSESSED SKIN INTEGRITY AROUND NOSE AND CHEEKS, SKIN INTACT AND NO REDNESS NOTED. NO SIGNS OF DISTRESS NOTED. SKIN IS WARM AND DRY. IV PATENT AND INTACT, INFUSING NS 10ML/HR AT THIS TIME. PATIENT IS ABLE TO AMBULATE WITH STANDBY ASSISTANCE. PLAN OF CARE WAS DISCUSSED AND PT VERBALIZED UNDERSTANDING. ALL SAFETY MEASURES ARE IN PLACE. INSTRUCTED PT TO USE THE CALL LIGHT FOR ANY ASSISTANCE AND PT AWARE. CALL LIGHT WITHIN REACH. TWO SIDE RAILS ARE UP. BED IS AT LOW POSITION. BED ALARM IS ON.
[2018-07-03 08:00] VITALS: BP 139/93
[2018-07-03] MEDS: THIAMINE 100 MG TAB PO SCH (08:07)
[2018-07-03] MEDS: AMYLASE/LIPASE/PROTEASE 1 CAPDR PO SCH ×3 (08:07→17:32)
[2018-07-03] MEDS: chlordiazePOXIDE 25 MG CAP PO SCH ×3 (08:07→17:33)
[2018-07-03] MEDS: LACTOBACILLUS RHAMNOSUS GG 1 EACH CAP PO SCH (08:07)
[2018-07-03] MEDS: SENNA 8.6 MG TAB PO SCH ×2 (08:07→20:23)
[2018-07-03] MEDS: MULTIVITAMIN 1 TAB PO SCH (08:08)
[2018-07-03] MEDS: FOLIC ACID 1 MG TAB PO SCH (08:19)
--- NOTE | 2018-07-03 08:59 | NUR ---
PATIENT'S FAMILY IS AT BEDSIDE. PATIENT IS SITTING UP ON BED AND TALKING TO FAMILY. NO SIGNS OF DISTRESS NOTED.
--- NOTE | 2018-07-03 09:04 | NUR ---
DR ROMAN IS TALKING TO PATIENT AND FAMILY AT BEDSIDE.
--- NOTE | 2018-07-03 09:35 | NUR ---
PATIENT TOOK A SHOWER AND CAME BACK TO HIS ROOM. PATIENT WAS ACCOMPANIED BY HIS MOM. NO SIGNS OF DISTRESS NOTED. SAFETY MEASURES ARE IN PLACE. TELE MONITOR ATTACHED.
[2018-07-03] MEDS ORDERED: POTASSIUM CHLORIDE 40 MEQ, LIDOCAINE MPF 1% - 5 mL VIAL 25 MG in NACL 0.9% 250 ML IV SCH (10:00)
--- NOTE | 2018-07-03 11:00 | NUR ---
ADMINISTERED POTASSIUM PER MD ORDER. CHECKED POTASSIUM LEVEL FROM AM LAB, POTASSIUM LEVEL 3.3. BROTHER KAILA IS AT BEDSIDE AND TALKING TO PATIENT.
[2018-07-03 12:00] VITALS: BP 134/85
--- NOTE | 2018-07-03 12:26 | NUR ---
PATIENT IS SITTING ON THE EDGE OF BED AND EATING LUNCH. PATIENT SAID THAT" THE PAIN IS GETTING BETTER AFTER THE PAIN MED." PATIENT'S DAD SHARON IS AT BEDSIDE. INSTRUCTED PATIENT AND FAMILY TO PRESS THE CALL LIGHT FOR ANY ASSISTANCE.
--- NOTE | 2018-07-03 14:25 | NUR ---
PATIENT IS RESTING ON BED AT THIS TIME. NO SIGNS OF DISTRESS NOTED. TELE MONITOR ATTACHED. SAFETY MEASURES ARE IN PLACE. CALL LIGHT WITHIN REACH.
[2018-07-03 16:00] VITALS: BP 126/85
--- NOTE | 2018-07-03 16:02 | NUR ---
DR LEMUS IS AT BEDSIDE TALKING TO THE PATIENT AND PATIENT'S DAD SHARON.
--- NOTE | 2018-07-03 17:11 | NUR ---
CALLED [facility] ,SPOKE WITH DORIAN HUNT, REQUESTING TELE BED AND FAXED ALL THE PAPER WORK AND DORIAN SAID SHE HAS NO BED AT THIS TIME AND WILL CALL BACK.
--- NOTE | 2018-07-03 17:37 | NUR ---
PT' S FRIEND JADE IS AT BEDSIDE. PATIENT IS SITTING AT THE EDGE OF THE BED AND EATING DINNER. NO SIGNS OF DISTRESS NOTED.
--- NOTE | 2018-07-03 18:11 | NUR ---
CALLED [facility] ADULT TRANSFER SPOKE WITH COLTEN REQUESTING A BED FOR HIGHER LEVEL OF CARE FOR SURGICAL EVAL COLTEN STATED SHE HAS ALL THE INFORMATION AND WILL CALL BACK WHEN BED AVAILABLE.
--- NOTE | 2018-07-03 18:22 | NUR ---
ADMINISTERED MED PER MD ORDER, PT TOLERATED WELL. FAMILY IS AT BEDSIDE. PT IS TALKING TO FAMILY. NO SIGNS OF DISTRESS NOTED.
--- NOTE | 2018-07-03 18:36 | NUR ---
PT STATED THAT HE FEELS ANXIOUS AND RESTLESS. ADMINISTERED PRN ATIVAN.
--- NOTE | 2018-07-03 19:30 | NUR ---
ENDORSE PATIENT AT BEDSIDE TO PASTER OPERATOR NURSE FOR CONTINUITY OF CARE. PATIENT IS IN STABLE CONDITION. FAMILY IS AT BEDSIDE.
--- NOTE | 2018-07-03 19:31 | NUR ---
RECEIVED BEDSIDE REPORT FROM ANANDA CARLTON. PT IS AAO X4. PT IS ON ROOM AIR. NO S/S OF DISTRESS. PT ON FULL LIQUID DIET TOLERATING WELL. IV ON R HAND 22G AND L HAND 24 G SL. PT WITH LOW POTASSIUM 3.3 RECEIVED K RIDER TODAY. SKIN INTACT. HAS PLAN TO BE TRANSFERRED TO HIGHER LEVEL OF CARE. NO ROOM YET. PLAN OF CARE DISCUSSED WITH PT AND FAMILY. CALL LIGHT WITHIN REACH.
[2018-07-03 20:00] VITALS: BP 134/80
[2018-07-03] MEDS: METOPROLOL 25 MG TAB PO SCH (20:23)
--- NOTE | 2018-07-03 20:29 | NUR ---
VITAL SIGNS ARE STABLE EXCEPT HR 128 DR ARE AWARE PT IS ASYMPTOMATIC. DUE MEDICATIONS WERE GIVEN. PT REFUSED SENNA. ALL NEEDS MET AT THIS TIME. WILL CONTINUE TO MONITOR.
--- NOTE | 2018-07-03 21:17 | NUR ---
CALLED [facility] AND TALKED W/[employer].SHE SAID THEY DON'T BED AVAILABLE NOW WE CAN CALL IN AM MAY BE THEY HAVE BED.
[2018-07-03] MEDS: HYDROcodone/APAP 7.5/325 MG 1 TAB PO PRN (22:46)
--- NOTE | 2018-07-03 23:00 | NUR ---
ANSWERED PARENTS QUESTIONS AND CONCERNS. PT MOST LIKELY WILL SPEND THE NIGHT HERE. WILL CONTINUE TO MONITOR
[2018-07-04] VITALS: BP 127/85
--- NOTE | 2018-07-04 | NUR ---
VS ARE STABLE. HR REMAINS ELEVATED AT 116. ALL NEEDS MET AT THIS TIME. WILL CONTINUE TO MONITOR
--- NOTE | 2018-07-04 01:08 | NUR ---
PT SLEEPING COMFORTABLY IN BED. NO S/S OF DISTRESS. CALL LIGHT WITHIN REACH
[2018-07-04] MEDS: HYDROmorphone 1 MG/ML AMP IVP PRN ×4 (02:36→18:33)
[2018-07-04 04:00] VITALS: BP 129/76
--- NOTE | 2018-07-04 04:00 | NUR ---
VITAL SIGNS ARE STABLE EXCEPT HR 123HR B/P 129/76. PT ASYMPTOMATIC. ALL NEEDS MET AT THIS TIME. CALL LIGHT WITHIN REACH. WILL CONTINUE TO MONITOR.
[2018-07-04] MEDS: PANTOPRAZOLE 40 MG INJ VIAL IVP SCH (05:41)
[2018-07-04] MEDS: PIPER/TAZO 3.375GM/D5W PREMIX 50 ML IV SCH ×4 (05:42→23:43)
--- NOTE | 2018-07-04 05:45 | NUR ---
ZOSYN NOW INFUSING PER ORDERS. ALL NEEDS MET AT THIS TIME.
[2018-07-04] MEDS: LORazepam 2 MG/ML VIAL IM/IVP PRN ×2 (06:53→20:36)
[2018-07-04 07:01] LABS: HEMATOCRIT 33.2 % (36-52); HEMOGLOBIN 10.6 g/dL (12.0-18.0); MEAN CORPUSCULAR HEMOGLOBIN 29 pg (27-31); MEAN CORPUSCULAR HGB CONC 32 g/dL (33-37); MEAN CORPUSCULAR VOLUME 91.5 fL (80-94); PLATELET COUNT (AUTO) 266 K/uL (140-450); RED BLOOD CELL COUNT(AUTO) 3.63 MIL/uL (4.20-6.10); RED CELL DISTRIBUTION WIDTH 13.1 % (11.6-13.7); WHITE BLOOD COUNT (AUTO) 23.9 K/uL (4.8-10.8)
--- NOTE | 2018-07-04 07:22 | NUR ---
RECEIVED BEDSIDE REPORT FROM COLUMNIST RN. PT IS AAO X4. PT IS ON ROOM AIR. NO S/S OF DISTRESS. PT ON FULL LIQUID DIET TOLERATING WELL. IV ON R HAND 22G AND L HAND 24 G SL. SKIN INTACT. HAS PLAN TO BE TRANSFERRED TO HIGHER LEVEL OF CARE. NO ROOM YET. PLAN OF CARE DISCUSSED WITH PT AND FAMILY. CALL LIGHT WITHIN REACH. BED IN LOW POSITION.
--- NOTE | 2018-07-04 07:25 | NUR ---
GAVE BEDSIDE REPORT TO BLAZE CARLTON. PT ENDORSED IN STABLE CONDITION.
[2018-07-04 07:30] LABS: ANION GAP 14.9 (8-16); CARBON DIOXIDE 25.6 mmol/L (21-32); POTASSIUM 4.5 mmol/L (3.5-5.1)
[2018-07-04 07:40] LABS: PHOSPHORUS 4.5 mg/dL (2.5-4.9)
[2018-07-04 07:59] LABS: BASOPHILS % (MANUAL) 0 % (0-2); EOSINOPHILS % (MANUAL) 0 % (0-4); LYMPHOCYTES % (MANUAL) 4 % (20-46); MONOCYTES % (MANUAL) 6 % (5-12)
[2018-07-04 08:00] VITALS: BP 121/70
[2018-07-04] MEDS: MULTIVITAMIN 1 TAB PO SCH (08:27)
[2018-07-04] MEDS: ACETAMINOPHEN 325 MG TAB PO PRN ×2 (08:28→16:55)
[2018-07-04] MEDS: chlordiazePOXIDE 25 MG CAP PO SCH (08:28)
[2018-07-04] MEDS: LACTOBACILLUS RHAMNOSUS GG 1 EACH CAP PO SCH (08:28)
[2018-07-04] MEDS: THIAMINE 100 MG TAB PO SCH (08:28)
[2018-07-04] MEDS: AMYLASE/LIPASE/PROTEASE 1 CAPDR PO SCH ×3 (08:29→16:55)
[2018-07-04] MEDS: FOLIC ACID 1 MG TAB PO SCH (08:29)
[2018-07-04] MEDS: METOPROLOL 25 MG TAB PO SCH ×2 (08:29→20:38)
[2018-07-04] MEDS: SENNA 8.6 MG TAB PO SCH ×2 (08:30→20:39)
--- NOTE | 2018-07-04 08:42 | NUR ---
PT COMPLAINING OF PAIN. WILL GIVE DILAUDID WITH SCHEDULED MORNING MEDS. PT VITAL SIGNS STABLE WITH HR ELEVATED AT 123.
--- NOTE | 2018-07-04 10:14 | NUR ---
PT ASLEEP IN BED. NO SIGNS OF DISTRESS OR PAIN NOTED. WILL CONTINUE TO ROUND FREQUENTLY. BED IN LOW POSITION,, CALL LIGHT WITHIN REACH.
[2018-07-04 12:00] VITALS: BP 112/65
--- NOTE | 2018-07-04 13:01 | NUR ---
PT COMPLAINING OF PAIN AGAIN. WILL GIVE PAIN MEDICATION WITH OTHER SCHEDULED MEDS.
--- NOTE | 2018-07-04 15:21 | NUR ---
PT IN ROOM ASKING IF HE CAN LEAVE HOSPITAL AND THEN COME BACK. EDUCATION WAS GIVEN ON REASONS TO WHY HE CAN NOT LEAVE AND COME BACK DUE TO DANGER OF HIM GETTING MORE SICK. CHARGE NURSE AMBER WAS AT BEDSIDE TO HEL PEXPLAIN RISKS. PT VERBALIZED UNDERSTANDING/
[2018-07-04 16:00] VITALS: BP 124/67
--- NOTE | 2018-07-04 16:27 | NUR ---
PT COMPLAINING OF PAIN 01/27. PT WAS GIVEN DILAUDID 3HRS AGO. HAS BEEN NOTIFIED.
--- NOTE | 2018-07-04 19:31 | NUR ---
RECEIVED BEDSIDE REPORT FROM BLAZE CARLTON. PT IS AAO X4. PT IS ON ROOM AIR. NO S/S OF DISTRESS. PT ON HEPATIC DIET. TOLERATING WELL. IV ON R HAND 22G SL. FLUSHING WELL. SKIN INTACT. PT HAS BEEN SINUS TACHY ON TELE MONITOR. DENIES ANY SOB. HAS PLAN TO BE TRANSFERRED TO HIGHER LEVEL OF CARE. NO ROOM YET. PLAN OF CARE DISCUSSED WITH PT AND FAMILY. CALL LIGHT WITHIN REACH.
--- NOTE | 2018-07-04 19:31 | NUR ---
ENDORSED PT TO SIGNAL MANAGER FOR CONTINUITY OF CARE. PT IN STABLE CONDITION AT THIS TIME.
[2018-07-04 20:00] VITALS: BP 120/68
[2018-07-04] MEDS: PANTOPRAZOLE 40 MG TABEC PO SCH (20:38)
--- NOTE | 2018-07-04 20:38 | NUR ---
VITAL SIGNS ARE STABLE B/P 120/68 HR 126 SAT 96% ON RA TEMP 99.0. SENNA WAS HELD. PT WITH SOFT STOOL TODAY. DUE MEDICATIONS GIVEN. ATIVAN WAS GIVEN. PT TOLERATED WELL. ALL QUESTIONS AND CONCERNS FROM PATIENT AND FAMILY ANSWERED. CALL LIGHT WITHIN REACH.
--- NOTE | 2018-07-04 21:00 | NUR ---
PT SITTING COMFORTABLY IN BED TALKING WITH FAMILY. SAFETY MEASURES ARE IN PLACE.
[2018-07-04] MEDS: HYDROcodone/APAP 7.5/325 MG 1 TAB PO PRN (22:10)
--- NOTE | 2018-07-04 23:43 | NUR ---
VITAL SIGNS ARE STABLE HR REMAINS ELEVATED 114. IV ON R HAND D/C IV CATH INTACT. NO IV STARTED ON LEFT HAND 24 G. PT TOLERATED WELL. ZOSYN NOW INFUSING PER ORDERS. WILL CONTINUE TO MONITOR. Addendum: 07/05/18 at 0319 by Nimisha Chandler RN * NEW IV STARTED ON LEFT HAND 24 G
[2018-07-05] VITALS: BP 119/82
--- NOTE | 2018-07-05 01:05 | NUR ---
PT SLEEPING. NO S/S OF DISTRESS. CALL LIGHT WITHIN REACH.
[2018-07-05] MEDS: HYDROmorphone 1 MG/ML AMP IVP PRN ×2 (01:14→12:37)
[2018-07-05 04:00] VITALS: BP 114/76
--- NOTE | 2018-07-05 04:00 | NUR ---
VITAL SIGNS ARE STABLE. ALL NEEDS MET AT THIS TIME. CALL LIGHT WITHIN REACH
--- NOTE | 2018-07-05 05:50 | NUR ---
L HAND 24G IV INFILTRATED. IV D/C CATH INTACT. NEW IV ON L AC 22G. PT TOLERATED WELL. WILL CONTINUE TO MONITOR
[2018-07-05] MEDS ORDERED: HYDROmorphone 1 MG/ML AMP IVP SCH (06:00)
[2018-07-05] MEDS: PIPER/TAZO 3.375GM/D5W PREMIX 50 ML IV SCH ×2 (06:04→12:37)
[2018-07-05 06:38] LABS: HEMATOCRIT 31.7 % (36-52); HEMOGLOBIN 10.4 g/dL (12.0-18.0); MEAN CORPUSCULAR HEMOGLOBIN 30 pg (27-31); MEAN CORPUSCULAR HGB CONC 33 g/dL (33-37); MEAN CORPUSCULAR VOLUME 89.8 fL (80-94); PLATELET COUNT (AUTO) 326 K/uL (140-450); RED BLOOD CELL COUNT(AUTO) 3.53 MIL/uL (4.20-6.10); RED CELL DISTRIBUTION WIDTH 12.8 % (11.6-13.7); WHITE BLOOD COUNT (AUTO) 26.5 K/uL (4.8-10.8)
[2018-07-05 06:41] LABS: CARBON DIOXIDE 27.3 mmol/L (21-32); POTASSIUM 4.3 mmol/L (3.5-5.1)
[2018-07-05 07:02] LABS: EOSINOPHILS % (MANUAL) 2 % (0-4); LYMPHOCYTES % (MANUAL) 4 % (20-46); MONOCYTES % (MANUAL) 5 % (5-12)
--- NOTE | 2018-07-05 07:28 | NUR ---
GAVE BEDSIDE REPORT TO SINDHU CARLTON. PT ENDORSED IN STABLE CONDITION.
--- NOTE | 2018-07-05 07:30 | NUR ---
RECEIVED PT IN BED, AAOX4. NO SOB NOTED. NO C/O PAIN AT THIS TIME. IV TO LT AC PATENT AND INTACT. CHEST CLEAR. ABDOMEN SOFT, BOWEL SOUNDS PRESENT. NO EDEMA NOTED. INSTRUCTED PT TO CALL FOR ASSISTANCE, CALL LIGHT WITHIN REACH, PT VERBALIZED UNDERSTANDING.
[2018-07-05 08:00] VITALS: BP 115/63
[2018-07-05] MEDS ORDERED: LIPA1CAP8 PO ×2 (08:10→14:39)
[2018-07-05] MEDS ORDERED: PIPE50SO2 IV (08:10)
[2018-07-05] MEDS ORDERED: SIME80CT27 PO ×2 (08:10→14:39)
[2018-07-05] MEDS ORDERED: LACT10CA PO (08:10)
[2018-07-05] MEDS: AMYLASE/LIPASE/PROTEASE 1 CAPDR PO SCH ×2 (09:01→12:37)
[2018-07-05] MEDS: PANTOPRAZOLE 40 MG TABEC PO SCH (09:01)
[2018-07-05] MEDS: SENNA 8.6 MG TAB PO SCH (09:01)
[2018-07-05] MEDS: FOLIC ACID 1 MG TAB PO SCH (09:01)
[2018-07-05] MEDS: LACTOBACILLUS RHAMNOSUS GG 1 EACH CAP PO SCH (09:01)
[2018-07-05] MEDS: THIAMINE 100 MG TAB PO SCH (09:01)
[2018-07-05] MEDS: METOPROLOL 25 MG TAB PO SCH (09:02)
[2018-07-05] MEDS: MULTIVITAMIN 1 TAB PO SCH (09:02)
--- NOTE | 2018-07-05 09:05 | NUR ---
PT C/O ANXIETY, ATIVAN IVP GIVEN PRN FOR ALCOHOL WITHDRAWAL. WILL CONTINUE TO MONITOR PT.
--- NOTE | 2018-07-05 09:55 | NUR ---
CM NOTE SPOKE WITH MEL OF [facility] PH# [phone] WHO REQUESTED FOR THE ORDER AND CLINICAL PACKET TO BE FAXED TO THEM. FAXED ORDER AND CLINICAL PACKET TO [facility], [facility], [facility].
[2018-07-05 12:00] VITALS: BP 120/72
[2018-07-05] MEDS ORDERED: LORazepam 2 MG/ML VIAL IM/IVP SCH (12:10)
--- NOTE | 2018-07-05 12:27 | NUR ---
CM NOTE FAXED ORDER TO TRANSFER FOR HIGHER LEVEL OF CARE AND CLINICAL PACKET TO [facility].
--- NOTE | 2018-07-05 14:16 | NUR ---
CM NOTE PER JUS OF [facility] PH# [phone], THEIR SURGEON DR. PLASENCIA HAS SAID THAT THE PATIENT HAS TO GO TO A TERTIARY HOSP AND HAS DENIED TO ACCEPT THE PATIENT. PER MEL OF [facility] PH# [phone], THEIR SURGEON DR. Maya GRIER SAID THAT THE PATIENT IS NOT A SURGICAL CANDIDATE AT THIS TIME AND THIS KIND OF PATIENT CASE WILL NOT DO WELL WITH SURGERY. PER MLE, THEIR SURGEON DR. GRIER ALSO SAID THAT IF THE PATIENT HAS FLUID COLLECTION, IT HAS TO BE DRAINED BY IR. MEL SAID THAT THEIR SURGEON DR. GRIER IS NOT ACCEPTING THE PATIENT. YSABEL OF [facility] PH# [phone], REQUESTED FOR ATTENDING PHYSICIAN/RESIDENT TO CONTACT HER. DR. MANNING MADE AWARE. I GAVE YSABEL THE NUMBER TO THE NURSING STATION WHERE THE PATIENT IS IN CASE SHE NEEDS TO CALL AT A LATER TIME TODAY. PER JUS OF [facility] PH# [phone], HE IS WAITING TO HEAR FROM THEIR SURGEON. I GAVE HIM THE NUMBER TO THE NURSING STATION WHERE PATIENT IN CASE HE CALLS AT A LATER TIME. PER RODOLFO OF [employer] [facility] PH# [phone], THEY HAVE NO AVAILABLE BEDS AT THIS TIME. RODOLFO REQUESTED FOR THE ORDER AND THE CLINICAL PACKET TO BE FAXED TO HER. FAXED TO [employer], ATTN: RODOLFO. I GAVE RODOLFO THE NUMBER TO THE NURSING STATION WHERE THE PATIENT IS IN CASE SHE CALLS AT A LATER TIME. DR. MANNING AND CHARGE NURSE ANAIS AWARE.
[2018-07-05] MEDS ORDERED: METO25TA PO (14:39)
[2018-07-05] MEDS ORDERED: PANT40EC28 PO (14:39)
[2018-07-05] MEDS ORDERED: FOLI1TAB90 PO (14:39)
[2018-07-05] MEDS ORDERED: SENN-74 PO (14:39)
[2018-07-05] MEDS ORDERED: THIA-34 PO (14:39)
[2018-07-05] MEDS ORDERED: ACET-1182 PO (14:39)
--- NOTE | 2018-07-05 15:12 | NUR ---
CM NOTE PER RICK OF [facility], THEIR DOCTOR HAS ACCEPTED THE PATIENT BUT WAITING FOR BED AVAILABILITY. RICK REQUESTED FOR THE [facility] TRANSPORT TO BE PLACED ON WILL CALL FOR TODAY. SPOKE WITH ALFIE OF [facility] PH# [phone] TO SET UP [facility] TRANSPORT ON WILL CALL TO GO TO [facility]. ALFIE REQUESTED FOR THE [facility] PCS FORM AND VOUCHER TO BE FAXED TO [facility]. FAXED [facility] PCS FORM AND VOUCHER TO [facility]. CHARGE NURSE ANAIS AND DR. MANNING AWARE.
--- NOTE | 2018-07-05 16:30 | NUR ---
[facility] CALLED AND STATED THEY HAVE A BED FOR PT. ACCEPTING PHYSICIAN DR. GODFREY. PT IS GOING TO ROOM [id number]. TEL#[phone]
[2018-07-05 17:00] VITALS: BP 120/81
--- NOTE | 2018-07-05 17:00 | NUR ---
CUSTOMER RELATIONS ADVISOR NURSE SET UP [facility] TRANSPORT[facility]. PT WILL BE PICKED UP AT 6 PM TODAY. PT AND FAMILY NOTIFIED, VERBALIZED UNDERSTANDING.
--- NOTE | 2018-07-05 17:30 | NUR ---
REPORT GIVEN TO MYRIAM AT [facility].
[2018-07-05] MEDS ORDERED: MORPHINE SULFATE 2 MG/ML SYR IVP SCH (17:40)
[2018-07-05] MEDS ORDERED: LORazepam 2 MG/ML VIAL IM/IVP PRN ×2 (17:45)
--- NOTE | 2018-07-05 18:00 | NUR ---
PT HAVING PANIC ATTACKS, VITAL SIGNS STABLE. NO SOB NOTED. ATIVAN IVP GIVEN ORDERED FOR ANXIETY. WILL CONTINUE TO MONITOR PT.
--- NOTE | 2018-07-05 18:30 | NUR ---
PT CALM, LAUGHING WITH FAMILY, NO C/O PANIC ATTACKS. TRANSFER INSTRUCTIONS GIVEN TO PT AND FAMILY, ALL VERBALIZED UNDERSTANDING THE REASON FOR THE TRANSFER TO [facility].
--- NOTE | 2018-07-05 18:40 | NUR ---
PT WHEELED OUT BY [facility]. PT AAOX4. NO SOB NOTED. NO COMPLAINTS MADE. IV TO LT AC SALINE LOCKED. PT TRANSFERRED TO [facility] FOR HLOC IN STABLE CONDITION. FAMILY WENT WITH PT.
== END 2018-07-05 18:40 | disposition short-term general hospital (02) | DRG 282 ==
LOC: MED 11:39 → MMU 16:11 → MIC 06-29 14:35 → MTU 07-01 18:40
PROVIDERS: ADMIT General Practice; ATTEND General Practice
DX: K85.21 Alcohol induced acute pancreatitis with uninfected necrosis (principal); J96.00 Acute respiratory failure, unspecified whether with hypoxia or hypercapnia; N17.0 Acute kidney failure with tubular necrosis; E43 Unspecified severe protein-calorie malnutrition; G93.41 Metabolic encephalopathy; J90 Pleural effusion, not elsewhere classified; I82.890 Acute embolism and thrombosis of other specified veins; E86.0 Dehydration; I42.9 Cardiomyopathy, unspecified; E83.41 Hypermagnesemia; E87.1 Hypo-osmolality and hyponatremia; E87.6 Hypokalemia; J98.11 Atelectasis; K82.8 Other specified diseases of gallbladder; K56.7 Ileus, unspecified; F10.239 Alcohol dependence with withdrawal, unspecified; F43.9 Reaction to severe stress, unspecified; Z68.25 Body mass index [BMI] 25.0-25.9, adult; Y90.0 Blood alcohol level of less than 20 mg/100 ml; E83.42 Hypomagnesemia
CPT/HCPCS: 36415; 71045; 74018; 74160; 76604; 76700; 76705; 80048; 80053; 80076; 80305; 81001; 82140; 82150; 82247; 82248; 82550; 83036; 83605; 83615; 83690; 83735; 83880; 84100; 84436; 84443; 84484; 85025; 85610; 85730; 86140; 87040; 87081; 87086; 93005; 96361; 96372; 96374; 96375; 99285; C9113; G0482; J0696; J1170; J1644; J1940; J1956; J2001; J2060; J2270; J2405; J2543; J2550; J2765; J3475; J3480; J3490; J7030; J7060; J7120; Q0092; Q9967